=== PATIENT | male | born 1990 | race Two or more races ===

== ENCOUNTER 2020-07-20 16:49 | Emergency (ER) | payer MEDICAID, OTHER ==
[~2020-07-20] VITALS: Ht 175.3 cm; Wt 74.8 kg
--- NOTE | 2020-07-20 16:59 | NUR ---
[email or web address] and mark,homeless,went to his mom's house and agitated, banging his head on the garage, versed 5mg given by ems, admits on using meth today. [employer] at bedside, connected to the monitor and pulse ox. kept comfortable, will continue to monitor accordingly.
[2020-07-20] MEDS ORDERED: LORAZEPAM INJ 2 MG/ML VIAL IM ONE (17:00)
[2020-07-20] MEDS ORDERED: HALOPERIDOL LACTATE INJ 5 MG/ML VIAL IM ONE (17:00)
[2020-07-20] MEDS ORDERED: diphenhydrAMINE HCL 50 MG/ML VIAL IM ONE (17:00)
[2020-07-20] MEDS ORDERED: diphenhydrAMINE HCL 50 MG/ML VIAL ONE (17:06)
[2020-07-20] MEDS ORDERED: OLANZAPINE 10 MG VIAL IM ONE ×3 (17:06→19:35)
[2020-07-20] MEDS ORDERED: LORAZEPAM INJ 2 MG/ML VIAL ONE (17:06)
[2020-07-20 18:59] LABS: BASOPHILS % (AUTO) 0.2 % (0.0-2.0); EOSINOPHILS % (AUTO) 0.1 % (0.0-6.0); HEMATOCRIT 48 % (39-51); HEMOGLOBIN 15.7 g/dL (13.5-17.5); LYMPHOCYTES # (AUTO) 1.2 /CMM (0.8-4.8); LYMPHOCYTES % (AUTO) 9.9 % (20.0-44.0); MEAN CORPUSCULAR HGB CONC 33 g/dl (31.0-36.0); MEAN CORPUSCULAR VOLUME 90 fL (80-96); MONOCYTES # (AUTO) 0.5 /CMM (0.1-1.30); MONOCYTES % (AUTO) 4.4 % (2.0-12.0); NEUTROPHILS # (AUTO) 10.4 /CMM (1.8-8.9); NEUTROPHILS % (AUTO) 85.4 % (43.0-81.0); PLATELET COUNT (AUTO) 165 /CMM (150-450); RED BLOOD CELL COUNT(AUTO) 5.29 MIL/uL (4.5-6.0); WHITE BLOOD COUNT (AUTO) 12.2 K/uL (4.3-11.0)
[2020-07-20 19:36] LABS: CALCIUM, SERUM 8.9 mg/dL (8.5-10.1); CREATININE 1.4 mg/dL (0.6-1.3); POTASSIUM 3.8 mmol/L (3.5-5.1)
[2020-07-20 19:40] LABS: ALBUMIN 4.5 g/dL (3.4-5.0); BILIRUBIN,DIRECT 0.1 mg/dL (0.0-0.2); BILIRUBIN,TOTAL 0.3 mg/dL (0.2-1.0); TOTAL PROTEIN, SERUM 8.7 g/dL (6.4-8.2)
[2020-07-20] MEDS ORDERED: IV NS 0.9% 1,000 ML BAG IV ONE (20:00)
--- NOTE | 2020-07-20 20:04 | NUR ---
PT AGITATED, UNABLE TO START IV LINE AT THIS TIME.
--- NOTE | 2020-07-20 20:15 | NUR ---
PT SAT 90% ON ROOM AIR, PLACED ON 3L NC.
--- NOTE | 2020-07-20 21:03 | NUR ---
Chris murphy in [facility] - 07/20/20 at 2104 by YAYA REPORT GIVEN TO DELORES MEDINA
[2020-07-20 21:49] LABS: BILIRUBIN,URINE SMALL (NEGATIVE); COLOR,URINE YELLOW (YELLOW); LEUKOCYTE ESTERASE ,URINE NEGATIVE (NEGATIVE); NITRITE, URINE NEGATIVE (NEGATIVE); PH,URINE 5.5 (5.0-8.0); PROTEIN,URINE 30 mg/dl (NEGATIVE); UGLUCOSE NEGATIVE (NEGATIVE); UROBILINOGEN,URINE 0.2 EU/dL (0.2)
[2020-07-20 22:04] LABS: BACTERIA,URINE 1+ /HPF (None Seen); HYALINE CASTS, URINE Few /LPF (None Seen); RBC,URINE 0-2 /HPF (0-2); SQUAMOUS EPITHELIAL CELL,UR 0-2 /HPF (None Seen); WBC,URINE 0-2 /HPF (0-3)
--- NOTE | 2020-07-21 02:27 | NUR ---
CALLED PSYCH CLINICIAN JAYA ALEXIS FOR EVAL, NO AVAILABLE, LEFT A MESSAGE.
--- NOTE | 2020-07-21 03:23 | NUR ---
SPOKE WITH FINANCIAL ADMINISTRATIVE ASSISTANT [place]. ETA 1 HOUR
--- NOTE | 2020-07-21 07:55 | NUR ---
ASSESSED PT ON BED ASLEEP EASILY AROUSABLE, NOT IN RESPIRATORY DISTRESS, V/S STABLE, KEPT RESTED AND COMFORTABLE. WILL CONTINUE TO MONITOR.
--- NOTE | 2020-07-21 12:42 | NUR ---
PT STATED HE FEELS MUCH BETTER AND HE IS NOT SUICIDAL AND JUST WANT TO BE RELEASE. ER MD AWARE.
--- NOTE | 2020-07-21 12:48 | NUR ---
CALLED KNIFE GRINDER FOR EVAL.
--- NOTE | 2020-07-21 13:04 | NUR ---
IV removed. Catheter intact and site benign. Pressure and 4x4 applied to site. No bleeding noted. Patient given written and verbal discharge instructions. Patient verbalizes understanding of instructions. Patient is ambulatory with steady gait. Refuses offer of [place] [facility] placement. Patient given list of available shelters in surrounding area.
[2020-07-21 13:05] VITALS: BP 113/52
--- NOTE | 2020-07-21 13:06 | NUR ---
Cutter In consult: Cutter In consult requested for homelessness and substance use. Patient is a 30-year-old, male. Per chart, patient was brought in on 07/20/20 by ambulance and [employer] due to agitation. SW met with patient at his bedside on the emergency department. Patient was alert and oriented x2. Patient was unable to recall the reason he was brought into the hospital and patient was unaware of the city he was at. Patient was resting and presented calm. Patient stated that [place] [id number] [place] [address];[phone]. Patient reported that he has a history of homelessness but is currently supported by his family. Patient currently receives income from his family and has access to food stamps. Patient stated that he is independent with his ADLs. Patient denies any history or current substance use. Per toxicology report, patient is positive for benzodiazepine. SW notified the patient of this toxicology result and patient denied recent substance use. Patient denies any history of mental illness. Patient denies any current suicidal or homicidal ideation. SW offered substance use resources to the patient and patient declined the resources. YONATHAN discussed discharge plans with the patient and patient stated that he will return to his prior living arrangement at home with his family. Patient stated that his family will pick him up. PLAN: Patient plans to return to his prior living arrangement, at home with family. No further SS interventions, however, SW will remain available as needed.
== END 2020-07-21 13:05 | disposition home or self-care (01) ==
LOC: ER 16:53
DX: S00.83XA Contusion of other part of head, initial encounter (principal); R46.1 Bizarre personal appearance; R00.0 Tachycardia, unspecified; Z59.0 Homelessness; X58.XXXA Exposure to other specified factors, initial encounter; Y93.89 Activity, other specified; Y92.89 Other specified places as the place of occurrence of the external cause; Y99.8 Other external cause status
CPT/HCPCS: 36415; 70450; 72125; 80048; 80076; 80299; 80307; 80320 ×2; 81001; 84443; 84484; 85025; 93005; 96360; 96372 ×2; 99285; J1200; J2060; J3490 ×2; J7030; G0480